=== PATIENT | male | born 1960 | race Caucasian/White ===

== ENCOUNTER 2018-09-03 20:27 | Emergency (ER) | payer BC ==
[2018-09-03 20:40] VITALS: BP 151/93
--- NOTE | 2018-09-03 20:40 | EDM.PDOC ---
ED HPI GENERAL MEDICAL PROBLEM - General Chief Complaint: Respiratory Problem Stated Complaint: CHEST CONGESTION Time Seen by Provider: 09/03/18 20:33 Source of Information: Reports: Patient, RN Notes Reviewed History Limitations: Reports: No Limitations - History of Present Illness INITIAL COMMENTS - FREE TEXT/NARRATIVE: Patient is a 58-year-old male who presents to the ED for evaluation of chest congestion and cough. He states that this cough has been present for around one week. He has been getting some green to yellow colored sputum up with this cough. He did go to the walk-in clinic yesterday and he was given a Z-Armin and some promethazine and codeine cough medicine, and a nebulizer at the clinic. He states that the cough medicine helps for a very short amount of time but then it returns. He did not get the flu shot this year. He states that he has felt some hot flashes and cold flashes at times but has not documented fever. He states that he is now having some mild chest soreness with bloody noses and he states that he has coughing fits enough that it makes him vomit. He states that the last time he took his cough medicine was around 5 PM today. He is a former smoker but has not been smoking for 30 years now. He has not taken any Tylenol or ibuprofen for the generalized aches. Chest Pain Score (Numeric/FACES): 4 - Related Data Allergies Allergy/AdvReac Type Severity Reaction Status Date / Time No Known Allergies Allergy Verified 09/03/18 20:37 Home Meds: Home Meds Calcium Carbonate/Vitamin D3 [Calcium 500 + Vit D 400] 1 tab PO DAILY 11/24/14 [ History] Losartan [Cozaar] 25 mg PO DAILY 11/24/14 [History] Multivitamin [Multivitamins] 1 cap PO DAILY 11/24/14 [History] Simvastatin [Zocor] 0 mg PO DAILY 11/24/14 [History] metFORMIN [Glucophage] 1,000 mg PO BID 11/24/14 [History] Prednisone [IJD: predniSONE] 20 mg PO QPM #2 tab 11/18/15 [Rx] Past Medical History HEENT History: Reports: Impaired Vision Cardiovascular History: Reports: High Cholesterol, Hypertension Endocrine/Metabolic History: Reports: Diabetes, Type II - Past Surgical History GI Surgical History: Reports: Other (See Below) Social & Family History - Family History Family Medical History: Noncontributory - Living Situation & Occupation Living situation: Reports: , with Spouse Occupation: Employed ED ROS GENERAL - Review of Systems Review Of Systems: See Below Constitutional: Reports: Other (Hot flashes and feelings of being chilled) HEENT: Reports: Nosebleed. Denies: Throat Pain Respiratory: Reports: Shortness of Breath, Cough, Sputum. Denies: Wheezing, Hemoptysis Cardiovascular: Reports: Chest Pain (Mild chest soreness). Denies: Edema Endocrine: Reports: No Symptoms GI/Abdominal: Reports: No Symptoms : Reports: No Symptoms Musculoskeletal: Reports: Other (Generalized body aches) Skin: Reports: No Symptoms Neurological: Reports: No Symptoms Psychiatric: Reports: No Symptoms Hematologic/Lymphatic: Reports: No Symptoms Immunologic: Reports: No Symptoms ED EXAM, GENERAL - Physical Exam Exam: See Below Exam Limited By: No Limitations General Appearance: Alert, WD/WN, Mild Distress (Patient is wearing mask at bedside and does cough on exam. This is a dry nonproductive cough.) Eye Exam: Bilateral Eye: Conjunctival Injection, EOMI, PERRL Ears: Normal External Exam Nose: Normal Inspection Throat/Mouth: Normal Inspection, Normal Lips, Normal Teeth, Normal Gums, Normal Oropharynx, Normal Voice, No Airway Compromise Head: Atraumatic, Normocephalic Respiratory/Chest: No Respiratory Distress, Lungs Clear, Normal Breath Sounds, No Accessory Muscle Use, Chest Non-Tender Cardiovascular: Normal Peripheral Pulses, Regular Rate, Rhythm, No Edema, No Murmur GI/Abdominal: Normal Bowel Sounds, Soft, Non-Tender, No Distention, No Mass Back Exam: Normal Inspection, Full Range of Motion Extremities: Normal Inspection, Normal Capillary Refill Neurological: Alert, Oriented, Normal Cognition, No Motor/Sensory Deficits Psychiatric: Normal Affect, Normal Mood Skin Exam: Warm, Dry, Intact, Normal Color, No Rash Course - Vital Signs Last Recorded V/S: Last Vital Signs Temp 98.4 F 09/03/18 20:33 Pulse 114 H 09/03/18 20:33 Resp 20 09/03/18 20:33 BP 151/93 H 09/03/18 20:33 Pulse Ox 96 09/03/18 20:33 - Orders/Labs/Meds Orders: Active Orders 24 hr Category Date Time Status Chest 2V [CR] Stat Exams 09/03/18 20:50 Ordered Labs: Laboratory Tests 09/03/18 09/03/18 Range/Units 21:10 21:10 WBC 9.24 H (4.23-9.07) K/mm3 RBC 4.92 (4.63-6.08) M/mm3 Hgb 15.0 (13.7-17.5) gm/L Hct 43.5 (40.1-51.0) % MCV 88.4 (79.0-92.2) fl MCH 30.5 (25.7-32.2) pg MCHC 34.5 (32.2-35.5) g/dl RDW Std Deviation 41.5 (35.1-43.9) fL Plt Count 224 (163-337) K/mm3 MPV 10.6 (9.4-12.3) fl Neutrophils % (Manual) 59 (40-60) % Band Neutrophils % 0 (0-10) % Lymphocytes % (Manual) 37 (20-40) % Atypical Lymphs % 0 % Monocytes % (Manual) 2 (2-10) % Eosinophils % (Manual) 2 (0.8-7.0) % Basophils % (Manual) 0 L (0.2-1.2) Platelet Estimate Adequate RBC Morph Comment Normal Sodium 137 (136-145) mEq/L Potassium 3.8 (3.5-5.1) mEq/L Chloride 104 (98-107) mEq/L Carbon Dioxide 25 (21-32) mEq/L Anion Gap 11.8 (5-15) BUN 22 H (7-18) mg/dL Creatinine 1.3 (0.7-1.3) mg/dL Est Cr Clr Drug Dosing 60.43 mL/min Estimated GFR (MDRD) 56 (>60) mL/min BUN/Creatinine Ratio 16.9 (14-18) Glucose 90 (74-106) mg/dL Calcium 9.5 (8.5-10.1) mg/dL Total Bilirubin 0.4 (0.2-1.0) mg/dL AST 29 (15-37) U/L ALT 38 (16-63) U/L Alkaline Phosphatase 55 (46-116) U/L Total Protein 7.2 (6.4-8.2) g/dl Albumin 3.3 L (3.4-5.0) g/dl Globulin 3.9 gm/dL Albumin/Globulin Ratio 0.9 L (1-2) Meds: Medications Discontinued Medications Generic Name Dose Route Start Last Admin Trade Name Eh PRN Reason Stop Dose Admin Ketorolac Tromethamine 30 mg 09/03/18 20:51 09/03/18 21:04 Toradol IM 09/03/18 20:52 30 mg ONETIME ONE Administration - Re-Assessments/Exams Free Text/Narrative Re-Assessment/Exam: 09/03/18 21:02 Patient presents to the ED for the evaluation of chest congestion and cough. I did order a chest x-ray and CBC and CMP for further evaluation. Likely that this is viral in etiology, with change in color of sputum and hot and cold flashes however I feel warrants further evaluation at this time. Explained to the patient the use of prednisone in acute cough. He states that he is a diabetic and this messes with his sugars. He states he has an appointment with his primary care provider Dr. Mtz tomorrow and he will discuss this with him at that time. I have further recommended that he try some Mucinex going forward and possible humidification at bedside. 09/03/18 21:44 Patient's labs have returned and are essentially within normal limits, his chest x-ray does not show any acute signs of pneumonia or consolidation changes. I will recommend that he keeps appointment with Dr. Mtz tomorrow for the possibility of prednisone. We'll recommend that he takes Mucinex DM to see if this doesn't help loosen some of the junk up for his cough. Departure - Departure Time of Disposition: 21:46 Disposition: Home, Self-Care 01 Condition: Fair Clinical Impression: Bronchitis - Discharge Information *PRESCRIPTION DRUG MONITORING PROGRAM REVIEWED*: No *COPY OF PRESCRIPTION DRUG MONITORING REPORT IN PATIENT VANITA: No Instructions: Acute Bronchitis, Adult, [id number] Referrals: Amor Mtz MD [Primary Care Provider] - Forms: ED Department Discharge Additional Instructions: You have been evaluated in the ED today for your cough/chest congestion. Your chest x-ray did not demonstrate any sign of pneumonia, your labs are essentially within normal limits. Please take the cough medicine you have been prescribed as directed. Recommend that you use a humidifier by your bedside to help break up your chest congestion and help relieve your cough. Follow up with Dr. Mtz tomorrow for the possibility of starting prednisone. You may take the Mucinex as needed for further cough/chest congestion relief. Please return to the ED if your symptoms change or worsen. - My Orders Last 24 Hours: My Active Orders 09/03/18 20:50 Chest 2V [CR] Stat - Assessment/Plan Last 24 Hours: My Active Orders 09/03/18 20:50 Chest 2V [CR] Stat
[2018-09-03] MEDS ORDERED: Ketorolac 30 MG/ML SDV IM ONE (20:51)
--- NOTE | 2018-09-04 06:45 | CR ---
Chest: Two views of the chest were obtained. Comparison: No prior chest x-ray. Heart size and mediastinum are normal. Lungs are clear. Bony structures appear within normal limits for the patient's age. Impression: 1. Nothing acute is seen on two-view chest x-ray. Diagnostic code #1
== END 2018-09-03 22:04 | disposition home or self-care (01) ==
LOC: JD.ED 20:27
DX: J40 Bronchitis, not specified as acute or chronic (principal); E11.9 Type 2 diabetes mellitus without complications; I10 Essential (primary) hypertension; E78.00 Pure hypercholesterolemia, unspecified; Z79.84 Long term (current) use of oral hypoglycemic drugs; Z79.899 Other long term (current) drug therapy
CPT/HCPCS: 36415; 71046; 80053; 85007; 85027; 87804; 96372; 99283; J1885

== ENCOUNTER 2019-08-11 18:41 | Emergency (ER) | payer BC ==
--- NOTE | 2019-08-11 19:46 | EDM.PDOC ---
ED HPI GENERAL MEDICAL PROBLEM - General Chief Complaint: Skin Complaint Stated Complaint: RASH ON BOTH LEGS Time Seen by Provider: 08/11/19 19:26 Source of Information: Reports: Patient, RN Notes Reviewed History Limitations: Reports: No Limitations - History of Present Illness INITIAL COMMENTS - FREE TEXT/NARRATIVE: Patient is a 59-year-old male who presents to the ED for a rash to his bilateral lower extremities. Patient notes that he noticed a rash on Friday, and has progressively gotten worse since then. This is raised, erythematous, and maculopapular in nature. He states it is very itchy, and is only on his legs. This is on the flexor surfaces, and the medial surfaces. He has been trying [id number] Zyrtec with little to no relief of the itching. Patient notes that he did recently have a trip to [place] which he visited his brother, and they did use some of his soaps/body washes, so wonders if that could be part of his issue. He is not tried any [id number] Benadryl or hydrocortisone cream on the rash. Patient's primary care provider is Dr. Jeimy Ramesh. - Related Data Allergies Allergy/AdvReac Type Severity Reaction Status Date / Time No Known Allergies Allergy Verified 08/11/19 19:21 Home Meds: Home Meds Losartan [Cozaar] 25 mg PO DAILY 11/24/14 [History] Multivitamin [Multivitamins] 1 cap PO DAILY 11/24/14 [History] Simvastatin [Zocor] 40 mg PO DAILY 11/24/14 [History] metFORMIN [Glucophage] 1,000 mg PO BID 11/24/14 [History] Aspirin 81 mg PO DAILY 08/11/19 [History] Calcium Carbonate [Calcium] 500 mg PO DAILY 08/11/19 [History] Hydrocortisone [Hydrocortisone 2.5% Crm] 1 mg TOP QID #1 tube 08/11/19 [Rx] Insulin Aspart [NovoLOG] 1 unit SQ TID 08/11/19 [History] Past Medical History HEENT History: Reports: Impaired Vision Cardiovascular History: Reports: High Cholesterol, Hypertension Neurological History: Reports: Neuropathy, Diabetic Endocrine/Metabolic History: Reports: Diabetes, Type II - Past Surgical History HEENT Surgical History: Reports: Oral Surgery Social & Family History - Family History Family Medical History: Noncontributory - Tobacco Use Smoking Status *Q: Former Smoker Used Tobacco, but Quit: Yes Month/Year Tobacco Last Used: 1989 - Caffeine Use Caffeine Use: Reports: Coffee - Recreational Drug Use Recreational Drug Use: No - Living Situation & Occupation Living situation: Reports: , with Spouse Occupation: Employed ED ROS GENERAL - Review of Systems Review Of Systems: Comprehensive ROS is negative, except as noted in HPI. Skin: Reports: Rash (SEE HPI) ED EXAM, SKIN/RASH Exam: See Below Exam Limited By: No Limitations General Appearance: Alert, WD/WN, No Apparent Distress Eye Exam: Bilateral Eye: EOMI Throat/Mouth: Normal Inspection, Normal Lips, Normal Teeth, Normal Gums, Normal Oropharynx, Normal Voice, No Airway Compromise Head: Atraumatic, Normocephalic Neck: Normal Inspection Respiratory/Chest: No Respiratory Distress, Lungs Clear, Normal Breath Sounds, No Accessory Muscle Use, Chest Non-Tender Cardiovascular: Normal Peripheral Pulses, Regular Rate, Rhythm, No Murmur Peripheral Pulses: 3+: Radial (L), Radial (R), Dorsalis Pedis (L), Dorsalis Pedis (R) Extremities: Normal Range of Motion, Non-Tender, Normal Capillary Refill, Other (rash, see skin assessment) Neurological: Alert, Oriented, Normal Cognition, No Motor/Sensory Deficits Psychiatric: Normal Affect, Normal Mood Skin: Warm, Dry, Intact, Normal Color, Rash (Maculopapular type rash, erythematous, on the flexural surfaces of the leg extending to just above the knee, and also on the medial portion of both legs, very itchy, not painful.) Location, Skin: Lower Extremity, Right, Lower Extremity, Left Characteristics: Maculopapular, Urticarial, Erythematous Associated features: No: Warmth, Tenderness, Swelling, Induration, Scaling, Lymphangitis, Inflammation, Crusting, Weeping, Rough Course - Vital Signs Last Recorded V/S: Last Vital Signs Temp 97.4 F 08/11/19 19:19 Pulse 68 08/11/19 19:19 Resp 19 08/11/19 19:19 BP 163/95 H 08/11/19 19:19 Pulse Ox 98 08/11/19 19:19 - Re-Assessments/Exams Free Text/Narrative Re-Assessment/Exam: 08/11/19 19:47 Patient presents to the ED for the evaluation of the rash on his bilateral legs. This does appear to be some sort of irritant dermatitis or contact dermatitis in nature. Patient will be started on hydrocortisone 2.5% cream to the affected areas. Departure - Departure Time of Disposition: 19:47 Disposition: Home, Self-Care 01 Condition: Fair Clinical Impression: Contact dermatitis Qualifiers: Contact dermatitis type: irritant Contact dermatitis trigger: other chemical product Qualified Code(s): L24.5 - Irritant contact dermatitis due to other chemical products - Discharge Information *PRESCRIPTION DRUG MONITORING PROGRAM REVIEWED*: No *COPY OF PRESCRIPTION DRUG MONITORING REPORT IN PATIENT VANITA: No Prescriptions: Hydrocortisone [Hydrocortisone 2.5% Crm] 1 mg TOP QID #1 tube Instructions: Contact Dermatitis, [id number] Referrals: Jeimy Ramesh MD [Primary Care Provider] - Additional Instructions: You were evaluated in the ER today regarding your low rash on your lower legs. This does appear to be a contact or irritant type dermatitis. You have been given a prescription for hydrocortisone 2.5% cream, please apply sparingly to the areas 2 times a day for the next week or so or until the rash starts to clear. Please have the area reassessed by Dr. Ramesh when you have your appointment with her next week. You may also take half a tablet of Benadryl every 4-6 hours for further itch relief, or try topical Benadryl ointment to the areas. Keep taking the Zyrtec as you had been previously as this will also further help the itching. Try to keep your skin well moisturized with a lotion like CeraVe. Please return to the ER at any time if your symptoms change or worsen. Sepsis Event Note - Evaluation Sepsis Screening Result: No Definite Risk - Focused Exam Vital Signs: Vital Signs Temp Pulse Resp BP Pulse Ox 08/11/19 19:19 97.4 F 68 19 163/95 H 98 Date Exam was Performed: 08/11/19 Time Exam was Performed: 19:41
== END 2019-08-11 20:00 | disposition home or self-care (01) ==
LOC: JD.ED 18:41
CPT/HCPCS: 99282